=== PATIENT | female | born 1940 | race Caucasian/White ===

== ENCOUNTER 2017-07-17 14:29 | Emergency (ER) | payer MEDICARE, OTHER ==
[~2017-07-17] VITALS: Ht 157.5 cm; Wt 64.2 kg
[~2017-07-17 14:29] MED LIST: ALBU6.7H INH; CELE-193 PO; ESCI5TAB PO; NAPR375T PO; NITR100C6 PO; OMEP20CA4 PO; ONDA8TAB9 PO
[2017-07-17 14:37] VITALS: BP 142/67
[2017-07-17] MEDS ORDERED: ibuprofen 200mg tablet PO ONE (14:45)
[2017-07-17] MEDS ORDERED: acetaminophen 325mg tablet PO ONE (14:45)
== END 2017-07-17 16:25 | disposition home or self-care (01) ==
LOC: ER 14:29
DX: S63.615A Unspecified sprain of left ring finger, initial encounter (principal); Z79.899 Other long term (current) drug therapy; E78.00 Pure hypercholesterolemia, unspecified; I10 Essential (primary) hypertension; J45.909 Unspecified asthma, uncomplicated; K21.9 Gastro-esophageal reflux disease without esophagitis; Z98.890 Other specified postprocedural states; Z60.2 Problems related to living alone; W23.0XXA Caught, crushed, jammed, or pinched between moving objects, initial encounter; Y93.89 Activity, other specified; Y92.89 Other specified places as the place of occurrence of the external cause; Y99.8 Other external cause status; Z88.0 Allergy status to penicillin
CPT/HCPCS: 29130; 73140; 99284

== ENCOUNTER 2019-05-26 14:58 | Emergency (ER) | payer MEDICARE, OTHER ==
[~2019-05-26] VITALS: Ht 157.5 cm; Wt 61.6 kg
[~2019-05-26 14:58] MED LIST changes: -ALBU6.7H INH; +ALBU6.7H9 INH
[2019-05-26 16:41] LABS: BASOPHILS # (AUTO) 0.1 X10'3 (0-0.2); BASOPHILS % (AUTO) 0.9 % (0-1); EOSINOPHILS # (AUTO) 0.4 X10'3 (0-0.9); EOSINOPHILS % (AUTO) 5.4 % (0-6); HEMATOCRIT 43.2 % (35.0-45.0); HEMOGLOBIN 14.7 g/dl (12.0-16.0); LYMPHOCYTES # (AUTO) 1.5 X10'3 (1.1-4.8); LYMPHOCYTES % (AUTO) 18.7 % (21-51); MEAN CORPUSCULAR HGB CONC 34.1 g/dL (33.0-36.5); MEAN PLATELET VOLUME 9.2 FL (7.4-10.4); MONOCYTES # (AUTO) 0.6 X10'3 (0-0.9); MONOCYTES % (AUTO) 6.9 % (2-12); NEUTROPHILS # (AUTO) 5.5 X10'3 (1.8-7.7); NEUTROPHILS % (AUTO) 68.1 % (42-75); PLATELET COUNT 296 X10'3 (140-440); RED BLOOD COUNT 4.74 X10'6 (4.20-5.60); RED CELL DISTRIBUTION WIDTH 14.6 % (11.5-14.5); WHITE BLOOD COUNT 8.1 X10'3 (4.5-11.0)
[2019-05-26 17:02] LABS: ALANINE AMINOTRANSFERASE 16 U/L (12-78); ALBUMIN 3.6 G/DL (3.4-5.0); ALBUMIN/GLOBULIN RATIO 1.1 (1.1-1.5); ALKALINE PHOSPHATASE 63 IU/L (46-116); ANION GAP 10 (8-16); ASPARTATE AMINO TRANSFERASE 14 U/L (10-37); BILIRUBIN,TOTAL 0.4 MG/DL (0.1-1.0); BLOOD UREA NITROGEN 16 MG/DL (7-18); BUN/CREATININE RATIO 17.6 (6.6-38.0); CALCIUM 8.6 MG/DL (8.5-10.1); CHLORIDE 106 MMOL/L (99-107); CREATININE 0.91 MG/DL (0.40-0.90); GLUCOSE 97 MG/DL (70-104); LIPASE 114 U/L (73-393); POTASSIUM 3.6 MMOL/L (3.5-5.1); SODIUM 142 MMOL/L (135-145); eGFR 60 ML/MIN
[2019-05-26] MEDS ORDERED: ondansetron 4mg rapidly disintigrating tab PO ONE (18:05)
[2019-05-26] MEDS ORDERED: traMADol 50MG tablet PO ONE (18:05)
--- NOTE | 2019-05-26 18:27 | NUR ---
NOTIFIED PROVIDER OF PATIENT'S BP 208/83, PATIENT STATED THAT SHE HAS NOT TAKEN HER CARRVEDILOL IN MORE THAN 24 HRS. NO NEW ORDERS AT THIS TIME
[2019-05-26 19:16] LABS: CLARITY,URINE CLEAR (Clear); COLOR,URINE YELLOW (Yellow); GLUCOSE, URINE NEGATIVE (Neg); KETONES,URINE 15 mg/dl (Neg); LEUKOCYTE ESTERASE ,URINE NEGATIVE (Neg); NITRITES, URINE NEGATIVE (Neg); OCCULT BLOOD,URINE NEGATIVE (Neg); PH,URINE 5.5 (4.8-8.0); PROTEIN,URINE NEGATIVE (Neg); UROBILINOGEN,URINE 0.2 E.U/dL (0.2-1.0)
[2019-05-26 19:19] LABS: UA COLLECTION TYPE CLN CATCH MIDSTREAM
[2019-05-26] MEDS ORDERED: ONDA4TAB6 PO (19:33)
[2019-05-26] MEDS ORDERED: DOXY100C43 PO (19:33)
[2019-05-26] MEDS ORDERED: CYCL-1 PO (19:33)
[2019-05-26 19:57] VITALS: BP 191/76
== END 2019-05-26 19:59 | disposition home or self-care (01) ==
LOC: ER 14:59
DX: S16.1XXA Strain of muscle, fascia and tendon at neck level, initial encounter (principal); J32.9 Chronic sinusitis, unspecified; R11.2 Nausea with vomiting, unspecified; E78.00 Pure hypercholesterolemia, unspecified; I10 Essential (primary) hypertension; J45.909 Unspecified asthma, uncomplicated; K21.9 Gastro-esophageal reflux disease without esophagitis; Z90.49 Acquired absence of other specified parts of digestive tract; Z98.890 Other specified postprocedural states; Z60.2 Problems related to living alone; Z88.0 Allergy status to penicillin; Z88.1 Allergy status to other antibiotic agents; Z79.2 Long term (current) use of antibiotics; Z79.899 Other long term (current) drug therapy; X58.XXXA Exposure to other specified factors, initial encounter; Y93.89 Activity, other specified; Y92.89 Other specified places as the place of occurrence of the external cause; Y99.8 Other external cause status
CPT/HCPCS: 36415; 80053; 81003; 83690; 85025; 99283; 99284

== ENCOUNTER 2019-06-15 08:03 | Emergency (ER) | payer MEDICARE, OTHER ==
[~2019-06-15] VITALS: Ht 157.5 cm; Wt 61.0 kg
[~2019-06-15 08:03] MED LIST changes: +CYCL-1 PO; +ONDA4TAB6 PO
[2019-06-15] MEDS ORDERED: normal saline 1000ML IV soln IVB ONE (08:15)
[2019-06-15] MEDS ORDERED: ketorolac tromethamine 15mg/ml inj. IV ONE (08:15)
--- NOTE | 2019-06-15 08:26 | NUR ---
PT TAKEN TO CT VIA GURNEY BY TECH.
--- NOTE | 2019-06-15 08:43 | NUR ---
PT BACK FROM CT. FAMILY AT BEDSIDE.
--- NOTE | 2019-06-15 08:44 | NUR ---
PT C/O "SICK TO STOMACH"
[2019-06-15 08:50] LABS: BASOPHILS # (AUTO) 0.1 X10'3 (0-0.2); BASOPHILS % (AUTO) 0.9 % (0-1); EOSINOPHILS # (AUTO) 0.5 X10'3 (0-0.9); EOSINOPHILS % (AUTO) 5.2 % (0-6); HEMATOCRIT 40.6 % (35.0-45.0); HEMOGLOBIN 13.9 g/dl (12.0-16.0); LYMPHOCYTES # (AUTO) 1.4 X10'3 (1.1-4.8); LYMPHOCYTES % (AUTO) 15.2 % (21-51); MEAN CORPUSCULAR HEMOGLOBIN 30.9 PG (27.0-31.0); MEAN CORPUSCULAR HGB CONC 34.3 g/dL (33.0-36.5); MEAN CORPUSCULAR VOLUME 90.1 FL (78-98); MEAN PLATELET VOLUME 8.9 FL (7.4-10.4); MONOCYTES # (AUTO) 0.6 X10'3 (0-0.9); MONOCYTES % (AUTO) 6.5 % (2-12); NEUTROPHILS # (AUTO) 6.6 X10'3 (1.8-7.7); NEUTROPHILS % (AUTO) 72.2 % (42-75); PLATELET COUNT 300 X10'3 (140-440); RED CELL DISTRIBUTION WIDTH 13.9 % (11.5-14.5); WHITE BLOOD COUNT 9.1 X10'3 (4.5-11.0)
[2019-06-15] MEDS ORDERED: ondansetron/PF 4mg/2ml inj IV ONE (08:55)
[2019-06-15 09:12] LABS: ALANINE AMINOTRANSFERASE 12 U/L (12-78); ALBUMIN 3.2 G/DL (3.4-5.0); ALKALINE PHOSPHATASE 55 IU/L (46-116); ANION GAP 6 (8-16); ASPARTATE AMINO TRANSFERASE 14 U/L (10-37); BILIRUBIN,TOTAL 0.2 MG/DL (0.1-1.0); BLOOD UREA NITROGEN 21 MG/DL (7-18); CALCIUM 7.9 MG/DL (8.5-10.1); CHLORIDE 107 MMOL/L (99-107); CREATININE 1.05 MG/DL (0.40-0.90); GLUCOSE 96 MG/DL (70-104); LIPASE 90 U/L (73-393); POTASSIUM 3.7 MMOL/L (3.5-5.1); SODIUM 140 MMOL/L (135-145); TOTAL CARBON DIOXIDE 27.2 MMOL/L (24-32); TOTAL PROTEIN 6.5 G/DL (6.4-8.2); eGFR 51 ML/MIN
--- NOTE | 2019-06-15 09:13 | NUR ---
ADMIN NAUSEA MEDICATION. FAMILY AT BEDSIDE.
--- NOTE | 2019-06-15 09:42 | NUR ---
PT DENIES NAUSEA AT THIS TIME. PROVIDER IN ROOM TO DISCUSS DC INSTRUCTIONS.
[2019-06-15] MEDS ORDERED: ONDA4TAB6 PO (09:44)
[2019-06-15] MEDS ORDERED: METR-159 PO (09:44)
[2019-06-15] MEDS ORDERED: CIPR-230 PO (09:44)
[2019-06-15] MEDS ORDERED: DOCU-148 PO (09:44)
[2019-06-15] MEDS ORDERED: POLY119P2 PO (09:44)
[2019-06-15] MEDS ORDERED: magnesium citrate 296ml oral solution PO ONE (09:45)
[2019-06-15 10:19] VITALS: BP 131/70
== END 2019-06-15 10:20 | disposition home or self-care (01) ==
LOC: ER 08:03
DX: K59.09 Other constipation (principal); K57.92 Diverticulitis of intestine, part unspecified, without perforation or abscess without bleeding; E78.00 Pure hypercholesterolemia, unspecified; I10 Essential (primary) hypertension; J45.909 Unspecified asthma, uncomplicated; K21.9 Gastro-esophageal reflux disease without esophagitis; Z90.49 Acquired absence of other specified parts of digestive tract; Z98.890 Other specified postprocedural states; Z60.2 Problems related to living alone; Z88.0 Allergy status to penicillin; Z88.1 Allergy status to other antibiotic agents; Z79.2 Long term (current) use of antibiotics; Z79.899 Other long term (current) drug therapy; Z87.891 Personal history of nicotine dependence
CPT/HCPCS: 36415; 74176; 80053; 83690; 85025; 93005; 96374; 96375; 99284; J1885; J2405; J7030

== ENCOUNTER 2020-06-14 03:14 | Emergency (ER) | payer MEDICARE, OTHER ==
[~2020-06-14] VITALS: Ht 157.5 cm; Wt 59.0 kg
[~2020-06-14 03:14] MED LIST changes: +APIX5TAB3 PO; +CARV40CP PO; -CYCL-1 PO; +DOCU-148 PO; +METR-159 PO; -NAPR375T PO; +NAPR375T5 PO; -NITR100C6 PO; -ONDA4TAB6 PO; -ONDA8TAB9 PO; +POLY119P2 PO
[2020-06-14 03:19] VITALS: BP 124/71
[2020-06-14] MEDS ORDERED: ondansetron 4mg rapidly disintigrating tab PO ONE (03:30)
== END 2020-06-14 03:55 | disposition home or self-care (01) ==
LOC: ER 03:16
DX: S01.512A Laceration without foreign body of oral cavity, initial encounter (principal); R11.2 Nausea with vomiting, unspecified; R53.1 Weakness; I48.91 Unspecified atrial fibrillation; E78.00 Pure hypercholesterolemia, unspecified; I10 Essential (primary) hypertension; J45.909 Unspecified asthma, uncomplicated; K21.9 Gastro-esophageal reflux disease without esophagitis; M19.90 Unspecified osteoarthritis, unspecified site; F17.200 Nicotine dependence, unspecified, uncomplicated; Z90.89 Acquired absence of other organs; Z98.890 Other specified postprocedural states; Z60.2 Problems related to living alone; Z88.0 Allergy status to penicillin; Z88.1 Allergy status to other antibiotic agents; Z79.2 Long term (current) use of antibiotics; Z79.899 Other long term (current) drug therapy; X58.XXXA Exposure to other specified factors, initial encounter; Y93.89 Activity, other specified; Y92.89 Other specified places as the place of occurrence of the external cause; Y99.8 Other external cause status
CPT/HCPCS: 99281; 99283

== ENCOUNTER 2025-04-26 01:21 | Inpatient (IN) | payer MEDICARE, OTHER ==
[~2025-04-26] VITALS: Ht 162.6 cm; Wt 59.1 kg
[~2025-04-26 01:21] MED LIST changes: +ALBU6.7H14 INH; -ALBU6.7H9 INH; +NAPR-1479 PO; -NAPR375T5 PO
--- NOTE | 2025-04-26 01:49 | Physician Documentation ---
History of Present Illness ~ Chief Complaint: Weakness Stated Complaint: ANXIETY Time Seen by MD: 01:42 Primary Medical Doctor: [facility] HPI This is a 84-year-old female who presents for evaluation of generalized weakness and sensation that something is wrong. She woke up with a sensation from sleep shortly prior to arrival. She feels that her head is foggy. She states I know my body, and it feels like something is wrong. She has a stroke in the past and she worried that she might have a stroke. She also reports bilateral lower extremity weakness as well as bilateral upper extremity weakness. No palliating or aggravating factors. Did not attempt to treat it. Came straight to the emergency department. She reports intermittent headaches, none right now. She denies any chest pain or shortness a breath. Reports nausea, intermittent vomiting, none now. Denies any abdominal pain. She denies any red flags of back pain such as bowel or bladder incontinence, saddle paresthesia, urinary retention, denies IV drug use, denies blood dyscrasias. Denies any concern for tobacco, alcohol or illicit substances use Medication Reconciliation Allergies: Coded Allergies: Penicillins (Verified Allergy, Unknown, 06/15/19) erythromycin base (Verified Allergy, Unknown, 12/31/16) Scheduled Albuterol Sulfate (Proventil Hfa), 2 PUFFS INH QID, (Reported) Apixaban (Eliquis), 5 MG PO BID Carvedilol Phosphate (Coreg Cr), 1 CAP PO DAILY, (Reported) Celecoxib* (Celebrex*), 200 MG PO DAILY, (Reported) Docusate Sodium (Colace), 1 CAP PO Q12H, (Reported) Escitalopram Oxalate* (Lexapro*), 2 TAB PO DAILY, (Reported) Metronidazole* (Flagyl*), 1 TAB PO Q8H, (Reported) Omeprazole (Prilosec), 1 CAP PO DAILY, (Reported) Polyethylene Glycol 3350 (Miralax), 17 GM PO DAILY, (Reported) Scheduled PRN Naproxen (Naproxen), 1 TAB PO Q12H PRN for pain, (Reported) Past Medical History Past Medical History: Atrial Fibrillation, High Cholesterol, Hypertension, Asthma, GERD, Arthritis Past Surgical History: appendectomy, orthopedic surgeries, tonsillectomy Other Past Family History: NONE Alcohol Use: None Drug Use: none Lives with: Alone Lives In: Home Occupation: retired Review of Systems ROS 10 point review of systems was performed and unless noted above in HPI is negative for acute process/complaint. Physical Exam Vital Signs: Temperature: 97.8, Source: Temporal, Heart Rate: 65, Respiratory Rate: 16, BP: 139/64, Pulse Oximetry: 99, Weight: 59.090 Physical Exam GENERAL: Awake, alert, oriented, GCS 15, no apparent distress, non-toxic appearing, answers questions, follows commands appropriately. HEENT: Atraumatic, normocephalic, pupils equal, extraocular muscles intact, sclerae anicteric, mucus membranes moist, oropharynx is clear, no stridor. NECK: supple, full active range of motion, trachea midline, no thyromegaly, no lymphadenopathy, no JVD. CARDIOVASCULAR: regular rate/rhythm, no murmurs/gallops/rubs, Pulses are 2+ in all extremities and symmetric. Capillary refill less than 2 seconds. PULMONARY: Nonlabored, good air movement ,no respiratory distress, speaking in full sentences, clear to auscultation bilaterally, no wheezing, no ronchi, no rales, no accessory muscle use. GASTROINTESTINAL: Soft, non-tender, non-distended, normal active bowel sounds, no organomegaly, no pulsatile masses, no CVA tenderness. NEUROLOGIC: Lucid with normal mental status. Normal facial symmetry. Moves all extremities symmetrically and with purpose. No truncal ataxia. Speech is fluid without evidence of dysarthria or aphasia, no focal deficits appreciated. MUSCULOSKELETAL: There is full range of motion of all extremities. There is no joint pain or joint swelling or joint erythema. There is no muscle pain or tenderness or swelling. EXTREMITIES: warm, well-perfused, no cyanosis, no clubbing, no edema, no acute deformities. Skin: warm, dry, no rashes or lesions, no jaundice, no petechiae orpurpura. No ecchymosis. PSYCHIATRIC: Normal affect, normal insight, normal concentration. Focused exam: [] Progress Results/Orders Results/Orders Orders - SHIRAZ GARCIA DO Cbc/Diff (04/26/25 01:37) MG (04/26/25 01:37) BMP (04/26/25 01:37) Hs Troponin I W Calculations (04/26/25 01:37) Hs Troponin I W Calculations (04/26/25 03:37) Hs Troponin I W Calculations (04/26/25 04:37) Urinalysis, Cult If Indicated (04/26/25 01:37) Liver Panel (04/26/25 01:42) CK (04/26/25 01:42) ESR (04/26/25 01:42) C-Reactive Protein (04/26/25 01:42) Pt Inr (04/26/25 01:42) PTT (04/26/25 01:42) PBNP (04/26/25 01:42) TSH (04/26/25 01:42) Free T4 (04/26/25 01:42) Monitor (04/26/25 01:42) Saline Lock (04/26/25 01:42) Ct Head (04/26/25 01:42) Stat Ekg (04/26/25 ) Completed Orders - SHIRAZ GARCIA DO Electrocardiogram (04/26/25 ) Vital Signs 04/26/25 01:33 Temp 97.8 Pulse 65 Resp 16 B/P (MAP) 139/64 Pulse Ox 99 EKG/XRAY/CT/US/VASC/MRI EKG : Additional Comment EKG was obtained and interpreted by myself showing sinus rhythm of 63, normal ID interval, narrow QRS, no QT prolongation, normal axis, no STEMI Medical Decision Making Additional information obtaine: old records, family Findings Facility Status: ED Holds, E process The plan was discussed with the patient, who demonstrates clear understanding of the plan and is in agreement with the plan unless otherwise noted in the chart. All questions have been answered, all concerns were addressed unless otherwise documented. I was available throughout their ED stay for frequent reassessment and questions. Differential Diagnoses (considered and possible or likely): [Dehydration, electrolyte derangement, urinary tract infection, pneumonia, occult bacteremia, ACS, CHF, clinically no evidence of cauda equina or conus medullaris, no evidence of stroke-like signs] ??Differential Diagnoses (considered and unlikely, not requiring evaluation currently): [No evidence of trauma. See above.] MDM Data Please see HPI for the following: Independent Historians and external Records Review. Historian: [Patient] Independent Historians: ?[Record review, son] Medication Management: [Reviewed medication list] Social History and determinants: [Reviewed] Please see the body of the note for the following: Any independent interpretations of ECG, imaging studies. All vitals signs/haemodynamics, ordered tests were independently reviewed and interpreted by myself. Nursing triage complaint and vitals reviewed, additional nursing notes were reviewed as available and I agree unless otherwise noted or documented in contradiction in the chart Vital Signs: Independently reviewed Labs: Independently interpreted Imaging: Independently interpreted Old Medical Records: Independently reviewed, see HPI for relevant summary and information Pulse Oximetry: [96%] interpreted as [normal on room air] by me [Missile Control Pilot: [Regular Rate, Regular rhythm, no ectopy, NSR] reviewed and interpreted by me] Additionally notably showing: [] Tests considered but not ordered include: [] Social Determinants of Health Impact: Patient was evaluated in [facility] [place] with limited access to healthcare due to below par ratio of patient to medical providers. [] Comorbid Conditions Impacting Present Evaluation and Care/Treatment: [] Management Discussions with other Healthcare Providers: [] Treatment and Disposition Medication Management (Given or considered): []. See EMR for details Consideration for Hospitalization/Escalation/Deescalation of Care: Admission for observation has been considered, [however the patient is able to tolerate p.o., their symptoms are controlled, they are able to rely on oral medications, and their chief complaint/diagnosis can be managed on outpatient basis.] ?ED Course:?[] ?Shared decision making:?[] Code status:?FULL Please see the full Electronic Medical Record for full details of nursing documentation, medications list, other records of complete past medical history and conditions, vital signs, laboratory studies, and any radiologic study interpretations by radiologists. Portions of this note were completed using dentaZOOM dictation software and as a result there may exist minor errors in spelling. I have reviewed elements of past family and social history and agree as included in note. Departure Referrals: NO PRIMARY CARE PROVIDER (PCP) Signature Scribe Signature: No scribe Attestation: The note accurately reflects work and decisions made by me.Shiraz Garcia DO 04/26/25 01:48 SHIRAZ GARCIA DO Apr 26, 2025 01:49
--- NOTE | 2025-04-26 01:51 | ELECTROCARDIOGRAPH REPORT ---
[facility] Test Date: 2025-04-26 Test Time: 01:49:46 Pat Name: SORAYA CROSS Department: [facility] Patient ID: [facility]-[id number] Room: [place] [id number] Gender: F Wine Merchant: : 1940 Requested By: FABIAN GARCIA Order Number: [id number] Reading MD: Dr. Adarsh Martinez Measurements Intervals [place] Rate: 63 P: 0 MT: 105 QRS: 54 QRSD: 90 T: 49 QT: 428 QTc: 439 Interpretive Statements Sinus rhythm Short MT interval Borderline ST depression, diffuse leads Electronically Signed On 04-30-2025 0:20:[address] Adarsh Martinez Please click the below link to view image of tracing.
[2025-04-26 02:19] LABS: MEAN PLATELET VOLUME 9.6 FL (7.4-10.4); RED CELL DISTRIBUTION WIDTH 15.0 % (11.5-14.5)
[2025-04-26 02:32] LABS: APTT 30 SECONDS (22-32); INR 1.1 INR
[2025-04-26 02:35] LABS: CREATININE 1.41 MG/DL (0.40-0.90); TOTAL CARBON DIOXIDE 28.6 MMOL/L (24-32); eCRCL 26 ML/MIN; eGFR 36 ML/MIN
[2025-04-26 02:46] LABS: PRO BRAIN NATRIURETIC PEPTIDE 661 PG/ML (0-450)
--- NOTE | 2025-04-26 02:54 | RADIOLOGY REPORT ---
EXAM: CT CT HEAD INDICATION: weakness, non-focal, ALOC TECHNIQUE: CT of the head without intravenous contrast. Radiation Dose Information: CT Dose: CTDI volume is 47.1 mGy. Dose-length product is 862 mGy*cm The dose indicators for CT are the volume Computed Tomography (CT) Dose Index (CTDIvol) and the Dose Length Product (DLP), and are measured in units of mGy and mGy-cm, respectively. These indicators are not patient dose, but values generated from the CT scanner acquisition factors. The report includes radiation exposure data for exposures received during this examination. COMPARISON: None FINDINGS: There is no evidence of acute intracranial hemorrhage, extra-axial collection, mass effect, midline shift, herniation or hydrocephalus. The ventricles, sulci and cisterns are age appropriate. The dugan-white differentiation is intact. Patchy periventricular and subcortical white matter hypoattenuation is nonspecific but may be related to small vessel ischemic disease. Probable chronic lacunar infarcts in the right caudate and left internal capsule. The visualized paranasal sinuses and mastoid air cells are clear. The surrounding soft tissues and osseous structures are unremarkable. IMPRESSION: 1. No acute intracranial abnormality.
--- NOTE | 2025-04-26 06:08 | Physician Documentation ---
Addendum Received patient in sign out from outgoing ED physician, Dr. Ramirez. Please see their note (and other providers) for further specific details regarding initial encounter. HPI/Course In Brief: This 84-year-old female presents with generalized weakness. She has a history of atrial fibrillation and takes Eliquis. "This is a 84-year-old female who presents for evaluation of generalized weakness and sensation that something is wrong. She woke up with a sensation from sleep shortly prior to arrival. She feels that her head is foggy. She states I know my body, and it feels like something is wrong. She has a stroke in the past and she worried that she might have a stroke. She also reports bilateral lower extremity weakness as well as bilateral upper extremity weakness. No palliating or aggravating factors. Did not attempt to treat it. Came straight to the emergency department. She reports intermittent headaches, none right now. She denies any chest pain or shortness a breath. Reports nausea, intermittent vomiting, none now. Denies any abdominal pain." ED COURSE: The patient lives with her son in [place]. Normally, she is able to get around using her walker. This morning, however she was very shaky and having a great deal of trouble ambulating even with a walker. The patient has a urinalysis suggestive of UTI. She also has evidence of NGHIA. I am starting fluids, antibiotics and getting her admitted. I Informed the patient of: 1. Nature of abnormal findings 2. Implications of the findings 3. Possible consequences of not receiving additional diagnosis and/or treatment, or following the current treatment plan. 4. Explanation of management options and provision of appropriate referral resources as indicated 5. Their responsibility to receive follow-up care Discussed harm reduction to this emergency department visit today. Patient expresses understanding and agrees to plan. All questions answered to the best of my ability. Discharged in stable condition with strict ED return precautions and close outpatient follow-up with primary care. EMR and Dragon Attestation - this medical document was created using an electronic medical record system with Frograms dictation system. Although this document has been carefully reviewed, there may still be some phonetic and typographical errors. These errors are purely typographical, due to imperfections of the software programs, and do not reflect any compromise in the patient's medical care. Note to Patients: Physician notes are written for the purpose of communication between medical providers and billing purposes. There may be aspects of this documentation that are simplified for efficiency and clarity. Physician notes are not intended to capture the entirety of your experience in the hospital. If you have questions about the way your medical condition and care was documented, please do not hesitate to bring this up at your next visit with your physician. Departure Disposition: 09 ADMITTED INPATIENT Admitted to Inpatient Unit: to hospitalist Admission Level of Care: Med/Surg Impression: Primary Impression: Acute urinary tract infection Additional Impressions: NGHIA (acute kidney injury) Generalized weakness Condition: Stable KALEIGH TALBOT MD Apr 26, 2025 06:08
[2025-04-26 07:43] LABS: LEUKOCYTE ESTERASE ,URINE SMALL (Neg); NITRITES, URINE POSITIVE (Neg); OCCULT BLOOD,URINE NEGATIVE (Neg)
[2025-04-26 07:50] LABS: UA COLLECTION TYPE CLN CATCH MIDSTREAM
[2025-04-26 07:52] LABS: CAL OXALATE CRYSTALS 2+ /HPF (NEGATIVE); MUCUS STRANDS NONE SEEN /LPF (Neg); SQUAMOUS EPITHELIAL CELL,UR FEW /LPF (FEW)
[2025-04-26 07:53] LABS: WBC CLUMPS,URINE FEW /HPF (NEGATIVE)
[2025-04-26] MEDS ORDERED: potassium Cl 20 mEq SR tablet PO PRN (08:50)
[2025-04-26] MEDS ORDERED: mag hydrox/Alum hydrox/simeth 30ml oral suspension PO PRN (08:50)
[2025-04-26] MEDS ORDERED: magnesium sulf-water 4G/100mL 100 ML IV PRN (08:50)
[2025-04-26] MEDS ORDERED: magnesium hydroxide 30ml (MOM) UD suspension PO PRN (08:50)
[2025-04-26] MEDS ORDERED: potassium Cl 40MEQ/1/2NS 520ml 520 ML IV PRN (08:50)
[2025-04-26] MEDS ORDERED: ondansetron/PF 4mg/2ml inj IV PRN (08:50)
[2025-04-26] MEDS: normal saline 1000ml 1,000 ML IV ONE (08:50)
[2025-04-26] MEDS ORDERED: HYDROcodone/acetaminophen 10/325mg tab PO PRN (08:50)
[2025-04-26] MEDS ORDERED: magnesium sulf-water 2g/50mL 50 ML IV PRN (08:50)
[2025-04-26] MEDS ORDERED: HYDROcodone/acetaminophen 5mg/325mg tablet PO PRN (08:50)
--- NOTE | 2025-04-26 09:37 | RADIOLOGY REPORT ---
CT abdomen and pelvis without contrast INDICATION: Oxalate crystals with UTI TECHNIQUE: Serial axial images were performed through the abdomen and pelvis and then reformatted in the sagittal and coronal plane. All CT scans at this medical facility are performed using dose modulation techniques as appropriate to a performed exam including the following: Automated exposure control was utilized; adjustment of the MA and/or KvP according to patient size; and use of iterative reconstruction technique. FINDINGS: Heart size is enlarged with a small pericardial effusion. Liver and spleen are normal in size without focal mass. 3.3 cm right renal cyst. No renal stones or hydronephrosis. No masses or enlargement of the adrenal glands or pancreas. Small gallstones.No biliary dilatation. No distention of bowel loops to suggest mechanical obstruction of bowel. There are sigmoid diverticuli present without signs of diverticulitis. No free fluid. Within the pelvis, bladder is smooth walled without stones. No abnormal masses or fluid collections. IMPRESSION: 1. Cholelithiasis. 2. Sigmoid diverticulosis. Computed Tomographic Radiation Dosimetry Report: Total CTDI vol = 8.6 mGy Total DLP = 372 mGy-cm Low dose protocols were performed.
[2025-04-26] MEDS: CefTRIAXone 2gm/D5W 50ml BAG 50 ML IV ONE (10:14)
[2025-04-26] MEDS: normal saline 1000ml 1,000 ML IV SCH (10:14)
[2025-04-26] MEDS: hydrALAZINE 20mg/ml inj. IV PRN (10:33)
[2025-04-26] MEDS ORDERED: MULT-1085 PO (11:27)
[2025-04-26] MEDS ORDERED: ATOR40TA PO (11:27)
[2025-04-26] MEDS ORDERED: CYAN-116 PO (11:27)
[2025-04-26] MEDS ORDERED: GABA-530 PO (11:27)
[2025-04-26] MEDS ORDERED: APIX5TAB5 PO (11:28)
--- NOTE | 2025-04-26 19:32 | HISTORY AND PHYSICAL ---
History & Physical Providers to CC ~ History of Present Illness Reason for Admit\Complaint: Metabolic encephalopathy/ UTI-cystitis History of Present Illness This is an 84-year-old female who presents to ED with an 24 hour history of generalized weakness, fatigue and mild confusion . The patient has been experiencing nightmares for two weeks however this became significantly worse last evening. The patient also endorses lower abdominal discomfort the patient temperature is slightly elevated from her baseline of 97.4. The patient also has a three-week history of abdominal pain nausea and vomiting. A CT scan of the abdomen and pelvis noncontrast obtained that showed cholelithiasis and diverticulosis otherwise unremarkable. The patient urinalysis demonstrates 20-30 white blood cells as well as white blood cell clumps a few squamous cell epithelium 2+ for calcium oxalate crystals and 4+ bacteria. The patient is started on IV Rocephin. Urine culture has been obtained Allergies: Coded Allergies: Penicillins (Verified Allergy, Unknown, 04/26/25) A LONG TIME AGO, DOESN'T REMEMBER ONLY KNEW THEY GOT SICK erythromycin base (Verified Allergy, Unknown, 12/31/16) Home Medications Home Medications Active Reported Eliquis (Apixaban) 5 Mg (74 Tabs) Tab.ds.pk 1 Tab PO BID 30 Days Gabapentin 100 Mg Capsule 1 Cap PO Q8H 30 Days Lipitor* (Atorvastatin Calcium) 40 Mg Tablet 1 Tab PO HS 30 Days Multi Vitamin Daily (Multivitamin) 1 Each Tablet 1 Tab PO DAILY 30 Days Vitamin B12 (Cyanocobalamin (Vitamin B-12)) 1,000 Mcg Tablet 1 Tab PO DAILY Miralax (Polyethylene Glycol 3350) 119 Gm Powder 17 Gm PO DAILY dissolve in water Coreg Cr (Carvedilol Phosphate) 40 Mg Cpmp.24hr 1 Cap PO DAILY Proventil Hfa (Albuterol Sulfate) 6.7 Gm Hfa.aer.ad 2 Puffs INH QID Lexapro* (Escitalopram Oxalate) 5 Mg Tablet 2 Tab PO DAILY Prilosec (Omeprazole) 20 Mg Capsule. 1 Cap PO DAILY Past Medical History Past Medical History Dementia CVA Depression GERD Asthma Hyperlipidemia Low-back pain Past Surgical History Surgical History Comment Right knee arthroplasty Left toe straightening surgery Appendectomy Tonsillectomy Family History Family History: FH: lung cancer FATHER Past Social History Social History Comment Patient denes history of smoking/ drinking alcohol nor any illicit drug use Full Code Status ROS ROS Except for positives in the HPI the rest of the 14 point review systems is negative Exam Vitals: Vital Signs Date Time Temp Pulse Resp B/P (MAP) Pulse Ox O2 Delivery O2 Flow Rate FiO2 04/26/25 17:02 70 15 117/56 (76) 97 0 04/26/25 09:37 98.2 General: Gen. No acute distress alert and mildly confused Lungs clear to ascultation bilaterally, no wheezes rales or rhonchi appreciated Heart normal sinus rhythm no murmurs rubs or clicks noted Abdomen soft mild generalized abdominal tenderness bowel sounds are normoactive Lower extremities no clubbing cyanosis, nor edema appreciated bilaterally Diagnostic Data Last Recorded Lab Results: 04/26/25 0204 04/26/25 020 Diagnostic Data: Laboratory Tests Test 04/26/25 02:04 Prothrombin Time 10.9 SECONDS (9.0-12.0) INR International Normalized Ratio 1.1 INR Activated Partial Thromboplast Time 30 SECONDS (22-32) Coagulation Comments Counseling Services Smoking & Tobacco Cessation: > 10 Minutes Advance Care Planning Advanced Care plannin - 30 Minutes Problems: (1) UTI (lower urinary tract infection) Status: Acute Additional Plan # metabolic encephalopathy secondary to UTI # UTI secondary to to cystitis Urine culture is sent IV Rocephin # NGHIA possibly secondary to renal tubular stasis Monitor daily metabolic panels IV fluid resuscitation # hypertension The patient is on extended-release carvedilol at home At this time I can not administered the patient has carvedilol since the patient is heart rate was in the 60s to low 70s and the patient is on 40 mg of extended release carvedilol daily which would cause the patient is significant bradycardia PRN IV hydralazine # depression Continue escitalopram # remote history of CVA The patient has been on apixaban for five years for a CVA # DVT prophylaxis SCDs Continue apixaban I spent a total of 17 minutes on reviewing various resuscitative measures/ ACP with the patient at the time of admission. The patient has decided on full code status Date of Service: Apr 26, 2025 Billing Provider: LAUREN RAMIREZ DO Common Visit Codes: 81099-OWMJTWP INP/OBS CARE (HIGH) Secondary Visit Codes: 85498-[id number] CARE PLAN 30 MINUTES LAUREN RAMIREZ DO Apr 26, 2025 19:32
[2025-04-26] MEDS: K and/or MAG REPLACEMENT MC SCH (19:39)
[2025-04-26] MEDS: docusate sod 100mg capsule PO SCH (19:56)
[2025-04-26] MEDS ORDERED: enoxaparin 30mg/0.3ml syringe SQ SCH (20:00)
[2025-04-26 21:45] VITALS: RESP 16
[2025-04-26 22:00] VITALS: BP 125/52; PULSE 69; RESP 16; TEMP 99.3; O2SAT 98
[2025-04-27] VITALS (11 sets, daily range): BP systolic 118–188; BP diastolic 45–90; PULSE 66–91; RESP 15–22; TEMP 97.4–98.4; O2SAT 95–99
[2025-04-27 06:16] LABS: MEAN PLATELET VOLUME 10.6 FL (7.4-10.4); RED CELL DISTRIBUTION WIDTH 14.7 % (11.5-14.5)
[2025-04-27] MEDS: multivitamins, therapeutics tablet PO SCH (07:35)
[2025-04-27] MEDS: ESCITALOPRAM 10 mg tablet 10 MG TABLET PO SCH (07:36)
[2025-04-27] MEDS: CefTRIAXone/D5W-Rocephin 1gm 50 ML IV SCH (07:36)
[2025-04-27 08:07] LABS: CREATININE 1.12 MG/DL (0.40-0.90); TOTAL CARBON DIOXIDE 26.1 MMOL/L (24-32); eCRCL 32 ML/MIN; eGFR 46 ML/MIN
--- NOTE | 2025-04-27 08:30 | RADIOLOGY REPORT ---
INDICATION: Cholelithiasis evaluate for cholecystitis TECHNIQUE: Multiple real-time sonographic images of the abdomen were obtained. COMPARISON: CT CT ABDOMEN PELVIS on DOS: 04/26/25 FINDINGS: The liver is heterogeneous in echogenicity with nodular contour. The liver measures 16.6 cm. No intrahepatic biliary ductal dilatation is noted. The gallbladder wall measures 0.2 cm and is unremarkable. There are gallstones. No sludge. The common duct measures 0.4 cm and is unremarkable. No pericholecystic fluid is noted. Sonographic thakkar's sign not evaluated. A right The right kidney measures 8.6 cm. No hydronephrosis. There is a cyst measuring 2.7 x 3.6 cm. The pancreas is not well visualized due to obscuration from bowel gas. The visualized portions of the IVC and aorta are grossly unremarkable. IMPRESSION: 1. Cirrhosis. 2. Gallstones. No gallbladder wall thickening or pericholecystic free fluid to suggest acute cholecystitis. Sonographic Thakkar's sign not evaluated.
[2025-04-27 09:28] LABS: LARGE PLATELETS FEW; PLATELET ESTIMATE NORMAL
[2025-04-27] MEDS: albuterol 2.5 MG/3 ML nebule NEB PRN (10:07)
[2025-04-27] MEDS: ipratropium/albuterol 3ml nebule NEB PRN (20:53)
--- NOTE | 2025-04-27 21:19 | PROGRESS NOTE ---
Daily Progress Note Providers to CC ~ Antibiotic Timeout Antibiotic Ordered?: Yes Subjective The patient is was not very good mood and doing well her son was at bedside- the patient's urine culture demonstrates Gram-negative rods that is far- speaking with the son we both anticipate the patient will be able to be discharged in the a.m. Objective Vital Signs Date Time Temp Pulse Resp B/P (MAP) Pulse Ox O2 Delivery O2 Flow Rate FiO2 04/27/25 21:02 68 16 Room Air 0.0 04/27/25 20:55 98 21 04/27/25 10:00 97.4 118/66 (83) Result Diagram: 04/27/25 0434 04/27/25 0730 Gen. No acute distress alert and oriented Lungs clear to ascultation bilaterally, no wheezes rales or rhonchi appreciated Heart normal sinus rhythm no murmurs rubs or clicks noted Abdomen soft nontender bowel sounds are normoactive Lower extremities no clubbing cyanosis, nor edema appreciated bilaterally Coagulation Studies Laboratory Tests Test 04/26/25 02:04 Prothrombin Time 10.9 SECONDS (9.0-12.0) INR International Normalized Ratio 1.1 INR Activated Partial Thromboplast Time 30 SECONDS (22-32) Coagulation Comments Problem\Assessment\Plan Problems/Diagnosis: (1) UTI (lower urinary tract infection) # metabolic encephalopathy secondary to UTI # UTI secondary to to cystitis Urine culture is growing out Gram-negative rods IV Rocephin # NGHIA possibly secondary to renal tubular stasis Monitor daily metabolic panels IV fluid resuscitation Renal function is improving # hypertension The patient is on extended-release carvedilol at home At this time I can not administered the patient has carvedilol since the patient is heart rate was in the 60s to low 70s and the patient is on 40 mg of extended release carvedilol daily which would cause the patient is significant bradycardia PRN IV hydralazine # depression Continue escitalopram # remote history of CVA The patient has been on apixaban for five years for a CVA # DVT prophylaxis SCDs Continue apixaban Disposition: Anticipate discharge in the a.m. Date of Service: Apr 27, 2025 Billing Provider: LAUREN RAMIREZ DO Common Visit Codes: [id number] INP/OBS CARE(HIGH) LAUREN RAMIREZ DO Apr 27, 2025 21:18
[2025-04-28 06:00] VITALS: BP 119/49; PULSE 66; RESP 16; TEMP 98.2; O2SAT 96
[2025-04-28 06:00] LABS: MEAN PLATELET VOLUME 10.2 FL (7.4-10.4); RED CELL DISTRIBUTION WIDTH 14.9 % (11.5-14.5)
[2025-04-28 06:02] LABS: CREATININE 1.09 MG/DL (0.40-0.90); TOTAL CARBON DIOXIDE 23.5 MMOL/L (24-32); eCRCL 33 ML/MIN; eGFR 48 ML/MIN
[2025-04-28 07:25] VITALS: RESP 16
[2025-04-28 07:38] VITALS: PULSE 64; RESP 16; O2SAT 98
[2025-04-28 07:43] VITALS: PULSE 67; RESP 16
[2025-04-28 10:00] VITALS: BP 162/80; PULSE 78; RESP 16; TEMP 98; O2SAT 95
[2025-04-28] MEDS ORDERED: CEFD300C3 PO (13:06)
[2025-04-28] MEDS ORDERED: SACC250C PO (13:06)
[2025-04-28] MEDS ORDERED: POTA-207 PO (13:06)
[2025-04-28] MEDS: potassium Cl 20 mEq SR tablet PO PRN (14:19)
--- NOTE | 2025-04-28 19:47 | DISCHARGE SUMMARY ---
Discharge Summary Providers to CC ~ Discharge Summary Admission Diagnosis: Metabolic encephalopathy/ UTI Hospital Course DATE OF ADMISSION: 04/26/2025 DATE OF DISCHARGE: 04/28/2025 Discharge Diagnosis\Comment: Metabolic encephalopathy secondary to UTI UTI secondary to cystitis [facility] possibly secondary to renal tubular stasis/ dehydration Hypertension Depression Remote history of CVA Operations\Procedures: None Consultants: None Complications: None Condition on DC: Stable New Medications: Cefdinir* (Cefdinir*) 300 Mg Capsule 1 CAP PO Q12H, #6 CAP Potassium Chloride* (K-Dur*) 20 Meq Tab.prt.sr 1 TAB PO DAILY, #30 TAB Recheck a metabolic panel in one-week to monitor your potassium level and kidney function Saccharomyces Boulardii (Florastor) 250 Mg Capsule 1 CAP PO Q12H for loose stool for 10 Days, #20 CAP 0 Refills Continued Medications: Albuterol Sulfate (Proventil Hfa) 6.7 Gm Hfa.aer.ad 2 PUFFS INH QID Apixaban (Eliquis) 5 Mg (74 Tabs) Tab.ds.pk 1 TAB PO BID for 30 Days, #74 TAB 0 Refills Atorvastatin Calcium* (Lipitor*) 40 Mg Tablet 1 TAB PO HS for 30 Days, #30 TAB Cyanocobalamin (Vitamin B-12) (Vitamin B12) 1,000 Mcg Tablet 1 TAB PO DAILY Escitalopram Oxalate* (Lexapro*) 5 Mg Tablet 2 TAB PO DAILY Gabapentin (Gabapentin) 100 Mg Capsule 1 CAP PO Q8H for 30 Days, #90 CAP 0 Refills Multivitamin (Multi Vitamin Daily) 1 Each Tablet 1 TAB PO DAILY for 30 Days, #30 TAB 0 Refills Omeprazole (Prilosec) 20 Mg Capsule.dr 1 CAP PO DAILY Polyethylene Glycol 3350 (Miralax) 119 Gm Powder 17 GM PO DAILY for constipation, #255 GM 0 Refills dissolve in water Discontinued Medications: Carvedilol Phosphate (Coreg Cr) 40 Mg Cpmp.24hr 1 CAP PO DAILY, CAP Discharge Summary: I admitted the patient with the following HPI: This is an 84-year-old female who presents to ED with an 24 hour history of generalized weakness, fatigue and mild confusion . The patient has been experiencing nightmares for two weeks however this became significantly worse last evening. The patient also endorses lower abdominal discomfort the patient temperature is slightly elevated from her baseline of 97.4. The patient also has a three-week history of abdominal pain nausea and vomiting. A CT scan of the abdomen and pelvis noncontrast obtained that showed cholelithiasis and diverticulosis otherwise unremarkable. The patient urinalysis demonstrates 20-30 white blood cells as well as white blood cell clumps a few squamous cell epithelium 2+ for calcium oxalate crystals and 4+ bacteria. The patient is started on IV Rocephin. Urine culture has been obtained. The patient is treated with IV Rocephin and her urine culture grew out E coli sensitive to all antibiotics other than cefazolin which was resistant and in sensitive to Augmentin the patient is discharged with a cefdinir 300 mg b.i.d. for additional four days and prescription for probiotic Florastor however recommended if this was not covered by insurance buy an [id number] probiotic. The patient is encephalopathy resolved by the day discharge. All her home medications were continued other than a recommended holding carvedilol for now has a patient does get hypertensive however in late afternoon and will likely need to restart her carvedilol however the patient's heart rate was in the 60s and taking carvedilol would cause her to be bradycardic. The patient had hypokalemia as well as and has a serum potassium of 3.3 on the day discharge the patient received potassium replacement protocol and was discharged with KCl 20 mEq daily and recommended to recheck a metabolic panel in one-week. Gen. No acute distress alert and oriented Lungs clear to ascultation bilaterally, no wheezes rales or rhonchi appreciated Heart normal sinus rhythm no murmurs rubs or clicks noted Abdomen soft nontender bowel sounds are normoactive Lower extremities no clubbing cyanosis, nor edema appreciated bilaterally The patient felt ready to be discharged and was medically cleared to be discharged on 04/28/2025 The patient was seen and evaluated on day of discharge. Time spent on discharge 35 minutes *Problems/Diagnosis: (1) UTI (lower urinary tract infection) Status: Acute Total Time Spent on D/C: > 30 Minutes Date of Service: Apr 28, 2025 Billing Provider: LAUREN RAMIREZ DO Common Visit Codes: 83803-KZT/OBS DISCH DAY >30min LAUREN RAMIREZ DO Apr 28, 2025 19:47
== END 2025-04-28 14:33 | disposition home or self-care (01) | DRG 689 ==
LOC: ER 01:21 → ED HOLD 08:59 → SUR 3N 21:25
PROVIDERS: ADMIT Family Medicine; ATTEND Family Medicine
DX: N30.90 Cystitis, unspecified without hematuria (principal); G93.41 Metabolic encephalopathy; N17.0 Acute kidney failure with tubular necrosis; I48.91 Unspecified atrial fibrillation; E78.00 Pure hypercholesterolemia, unspecified; B96.20 Unspecified Escherichia coli [E. coli] as the cause of diseases classified elsewhere; E86.0 Dehydration; Z79.01 Long term (current) use of anticoagulants; F32.A Depression, unspecified; I10 Essential (primary) hypertension; J45.909 Unspecified asthma, uncomplicated; F03.90 Unspecified dementia, unspecified severity, without behavioral disturbance, psychotic disturbance, mood disturbance, and anxiety; Z96.651 Presence of right artificial knee joint; K57.30 Diverticulosis of large intestine without perforation or abscess without bleeding; K21.9 Gastro-esophageal reflux disease without esophagitis; E87.6 Hypokalemia; Z90.49 Acquired absence of other specified parts of digestive tract; Z88.1 Allergy status to other antibiotic agents; Z79.899 Other long term (current) drug therapy; Z86.73 Personal history of transient ischemic attack (TIA), and cerebral infarction without residual deficits; Z87.891 Personal history of nicotine dependence; Z88.0 Allergy status to penicillin
CPT/HCPCS: 36415; 70450; 74176; 76700; 80048; 80076; 81001; 82550; 83735; 83880; 84439; 84443; 84484; 85008; 85025; 85610; 85651; 85730; 86140; 87077; 87081; 87088; 87186; 93005; 94640; 94760; 96365; 96375; 99285; G0378; J0360; J0696; J3490; J7030